=== PATIENT | female | born 1970 | race Caucasian/White ===

== ENCOUNTER 2020-05-17 15:44 | Outpatient (REF) | payer BC, SELFPAY | END 2020-05-17 15:45 | disposition home or self-care (01) | LOC: HO.LAB 15:44 | PROVIDERS: Visit Provider Internal Medicine | DX: Z20.828 Contact with and (suspected) exposure to other viral communicable diseases (principal) | CPT/HCPCS: 36415; 87635 ==

== ENCOUNTER → 2021-11-12 14:00 | Outpatient (BNVA) | payer BC, SELFPAY | PROVIDERS: PCP Family Medicine; Visit Provider Nurse Practitioner Family | DX: Z13.89 Encounter for screening for other disorder (principal) ==

== ENCOUNTER 2022-01-10 06:09 | Outpatient (REF) | payer BC, SELFPAY ==
--- NOTE | ~2022-01-10 | FL_ITS ---
EXAMINATION: XR FLUOROSCOPY WITH IMAGES CLINICAL INFORMATION: Spondylosis without myelopathy or radiculopathy. COMPARISON: None. TECHNIQUE: Fluoroscopy performed by Socorro Hwang. Fluoroscopy time: 0.5 minutes DAP: 1.67 Gycm2 Images: 2 FINDINGS: There is needle positioned along the left SI joint with faint contrast seen in the vicinity.. No gross bony abnormality seen. FL/FL guidance in treatment room IMPRESSION: Fluoroscopy guidance was provided to Socorro during pain management.
== END 2022-01-10 06:10 | disposition home or self-care (01) ==
LOC: HO.RADIR 06:09
PROVIDERS: Visit Provider Internal Medicine
DX: M47.818 Spondylosis without myelopathy or radiculopathy, sacral and sacrococcygeal region (principal)
CPT/HCPCS: 27096; J1040; J2795; Q9967

== ENCOUNTER → 2022-01-14 11:05 | Outpatient (BNVA) | payer BC, SELFPAY | PROVIDERS: PCP Family Medicine; Visit Provider Anesthesiology | DX: M46.1 Sacroiliitis, not elsewhere classified (principal) ==